=== PATIENT | female | born 1950 | race Caucasian/White ===

== ENCOUNTER → 2017-02-23 | Outpatient (CLI) | payer OTHER | LOC: BMCIMAGING 13:23 | PROVIDERS: ATTEND Internal Medicine | DX: J40 Bronchitis, not specified as acute or chronic (principal) ==

== ENCOUNTER 2017-09-01 07:46 | Inpatient (IN) | payer OTHER ==
[2017-09-01] MEDS ORDERED: ONDANSETRON 4 MG/2 ML VIAL ONE (08:19)
[2017-09-01] MEDS ORDERED: ONDANSETRON 4 MG/2 ML VIAL IVP ONE (08:19)
[2017-09-01] MEDS ORDERED: HYDROmorphONE/DILAUDID 2 MG/ML INJ ONE (08:19)
[2017-09-01] MEDS ORDERED: HYDROmorphONE/DILAUDID 2 MG/ML INJ IVP ONE (08:19)
[2017-09-01] MEDS ORDERED: NS 1,000 ML IV ONE (08:19)
--- NOTE | 2017-09-01 08:22 | EDPHY ---
HPI/HX/ROS/PE/MDM Narrative: CHIEF COMPLAINT: Right lower abdominal pain HISTORY OF PRESENT ILLNESS: This patient is a 67 year old female complaining of right lower quadrant pain onset last night. Her discomfort is generally a dull ache, but she notes sharp pain with palpation. Certain positions make her pain increase. She cannot identify any palliating factors. She has never had similar pain in the past. The patient had a fever last night, now resolved. She felt nauseous the day before her discomfort began. She denies vomiting or diarrhea. No history of abdominal surgeries other than cesarian section. No history of kidney stones. Her last food intake was last night around 17:00. She has had sips of water since then. No chills, chest pain, shortness of breath, palpitations, vomiting, diarrhea, urinary complaints, headache, lightheadedness. REVIEW OF SYSTEMS: Aside from elements discussed in the HPI, a comprehensive 10-point review of systems was reviewed and is negative. PAST MEDICAL HISTORY: Cardiomegaly. History of breast cancer 12 years ago ( chemotherapy and bilateral mastectomy). Cesarian section. Chronic bronchitis ( inhaler as needed). SOCIAL HISTORY: . at bedside. PCP: Dr. Cisse. VITAL SIGNS: Reviewed by me GENERAL: Well-developed, well-nourished, resting comfortably in no respiratory distress. HEENT: Atraumatic. Eyes: No icterus, no injection. Mouth: dry lips, moist mucous membranes. No erythema or lesions. Neck: supple with no adenopathy. LUNGS: Clear to auscultation bilaterally, no wheezes, rhonchi or rales. CARDIAC: Regular rate and rhythm, no rubs, murmurs or gallops. ABDOMEN: McBurney's point tenderness, voluntary guarding, no rebound. Soft, nontender, nondistended, bowel sounds normal. BACK: No CVA tenderness. EXTREMITIES: No trauma. No edema. Range of motion is normal throughout. NEURO: Alert and oriented, grossly nonfocal. SKIN: Warm and dry, no rash. PSYCHIATRIC: Normal mentation, no agitation. Portions of this note were transcribed by a director medical writing. I personally performed a history, physical exam, medical decision making, and confirmed accuracy of information the transcribed note. ED Course: This 67 y/o female presents with LRQ abdominal pain onset last night. Exam reveals McBurney's point tenderness. Plan for CT abdomen/pelvis. Plan for labs including CBC, chemistries, liver, lipase, UA. Plan to administer 1mg IV Dilaudid, 4mg IV Zofran, and 1L IV NS for symptom relief. 10:[address] Hua, radiologist. CT abdomen/pelvis positive for ruptured appendix. Plan to consult with general surgery. Plan to administer 1gm IV Rocephin and 500mg IV Flagyl. 10:22 Spoke with PA for Dr. Key, general surgeon. Discussed options for surgery. Recognize the fact that the patient primary care physician is Dr. Sameera Cisse from [facility]; patient and family would prefer consultation with General surgery on-call. 11:[address] Key. She will evaluate the patient. She accepts admission for ruptured appendicitis. MDM: After obtaining the patient's history and performing an examination, differential diagnosis considered included but was not limited to appendicitis, cholecystitis, gastritis, pancreatitis, kidney stones, urinary tract infections and other causes. - Data Points Imaging Results: Imaging Impressions Abdomen CT 09/01/17 08:22 Impression: Ruptured appendicitis. Results called to Dr. Mena at 10:05 AM. General information for patients regarding this examination can be found at [email or web address]. If you have questions or comments about this report, please contact me at (hospital) or [phone] (cell). Imaging: Discussed imaging studies w/ call center director Radiologist Laboratory Results: Laboratory Results 09/01/17 08:45 09/01/17 08:45 09/01/17 09/01/17 09/01/17 09:25 08:45 08:45 WBC 8.52 10^3/uL 10^3/uL (3.80-9.50) RBC 4.20 10^6/uL 10^6/uL (4.18-5.33) Hgb 13.7 g/dL g/dL (12.6-16.3) Hct 40.2 % % (38.0-47.0) MCV 95.7 fL fL (81.5-99.8) MCH 32.6 pg pg (27.9-34.1) MCHC 34.1 g/dL g/dL (32.4-36.7) RDW 13.6 % % (11.5-15.2) Plt Count 141 10^3/uL L 10^3/uL (150-400) MPV 11.2 fL fL (8.7-11.7) Neut % (Auto) 81.1 % H % (39.3-74.2) Lymph % (Auto) 10.2 % L % (15.0-45.0) [place] % (Auto) 5.8 % % (4.5-13.0) Eos % (Auto) 2.1 % % (0.6-7.6) Baso % (Auto) 0.4 % % (0.3-1.7) Nucleat RBC Rel Count 0.0 % % (0.0-0.2) Absolute Neuts (auto) 6.92 10^3/uL H 10^3/uL (1.70-6.50) Absolute Lymphs (auto) 0.87 10^3/uL L 10^3/uL (1.00-3.00) Absolute Monos (auto) 0.49 10^3/uL 10^3/uL (0.30-0.80) Absolute Eos (auto) 0.18 10^3/uL 10^3/uL (0.03-0.40) Absolute Basos (auto) 0.03 10^3/uL 10^3/uL (0.02-0.10) Absolute Nucleated RBC 0.00 10^3/uL 10^3/uL (0-0.01) Immature Gran % 0.4 % % (0.0-1.1) Immature Gran # 0.03 10^3/uL 10^3/uL (0.00-0.10) Sodium 139 mEq/L mEq/L (135-145) Potassium 3.7 mEq/L mEq/L (3.5-5.2) Chloride 105 mEq/L mEq/L (97-110) Carbon Dioxide 26 mEq/l mEq/l (22-31) Anion Gap 8 mEq/L mEq/L (8-16) BUN 20 mg/dL mg/dL (7-23) Creatinine 1.1 mg/dL H mg/dL (0.6-1.0) Estimated GFR 49 Glucose 92 mg/dL mg/dL (70-100) Calcium 8.4 mg/dL L mg/dL (8.5-10.4) Total Bilirubin 1.3 mg/dL mg/dL (0.1-1.4) Conjugated Bilirubin 0.4 mg/dL mg/dL (0.0-0.5) Unconjugated Bilirubin 0.9 mg/dL mg/dL (0.0-1.1) AST 16 IU/L IU/L (14-46) ALT 29 IU/L IU/L (9-52) Alkaline Phosphatase 58 IU/L IU/L (38-126) Total Protein 5.3 g/dL L g/dL (6.3-8.2) Albumin 3.0 g/dL L g/dL (3.5-5.0) Lipase 27 IU/L IU/L (23-300) Urine Color YELLOW Urine Appearance HAZY Urine pH 5.0 (5.0-7.5) Ur Specific [place] 1.015 (1.002-1.030) Urine Protein NEGATIVE (NEGATIVE) Urine Ketones NEGATIVE (NEGATIVE) Urine Blood NEGATIVE (NEGATIVE) Urine Nitrate NEGATIVE (NEGATIVE) Urine Bilirubin NEGATIVE (NEGATIVE) Urine Urobilinogen NEGATIVE EU EU (0.2-1.0) Ur Leukocyte Esterase NEGATIVE (NEGATIVE) Urine RBC 3-5 /hpf H /hpf (0-3) Urine WBC 10-15 /hpf H /hpf (0-3) Ur Epithelial Cells Not Reported Hyaline Casts >182 /lpf H /lpf (0-1) Granular Casts 1-5 /lpf /lpf (0-1) Urine Mucus TRACE /lpf /lpf (NONE-1+) Urine Glucose NEGATIVE (NEGATIVE) Medications Given: Discontinued Medications Hydromorphone HCl (Dilaudid) 1 mg IVP EDNOW ONE Stop: 09/01/17 08:20 Last Admin: 09/01/17 08:25 Dose: 1 mg Sodium Chloride (Ns) 1,000 mls @ 0 mls/hr IV EDNOW ONE; Wide Open PRN Reason: Protocol Stop: 09/01/17 08:20 Last Admin: 09/01/17 08:25 Dose: 1,000 mls Ceftriaxone Sodium/Dextrose (Rocephin 1 Gm (Premix)) 50 mls @ 100 mls/hr IV EDNOW ONE PRN Reason: Protocol Stop: 09/01/17 10:46 Last Admin: 09/01/17 10:28 Dose: 50 mls Metronidazole/Sodium Chloride (Flagyl 500 Mg (Premix)) 100 mls @ 100 mls/hr IV EDNOW ONE PRN Reason: Protocol Stop: 09/01/17 11:17 Last Admin: 09/01/17 10:56 Dose: 100 mls Ondansetron HCl (Zofran) 4 mg IVP EDNOW ONE Stop: 09/01/17 08:20 Last Admin: 09/01/17 08:25 Dose: 4 mg General Time Seen by Provider: 09/01/17 08:09 Initial Vital Signs: Initial Vital Signs Temperature (C) 36.4 C 09/01/17 07:49 Heart Rate 82 09/01/17 07:49 Respiratory Rate 18 09/01/17 07:49 Blood Pressure 139/77 H 09/01/17 07:49 O2 Sat (%) 96 09/01/17 07:49 O2 Delivery Mode Room Air O2 (L/minute) 2 Allergies/Adverse Reactions: morphine Allergy (Verified 09/01/17 11:06) Vomiting Sulfa (Sulfonamide Antibiotics) Allergy (Verified 09/01/17 07:48) Rash Home Medications: Medication Instructions Recorded Multivitamins [Multivitamin (*)] 1 each PO DAILY 09/16/15 Venlafaxine HCl 50 mg PO DAILY 09/16/15 Albuterol [Proventil Inhaler HFA 1 - 2 puffs IH Q4H PRN 09/01/17 (*)] Calcium Carb W/Vit D [Calcium Carb 500 mg PO DAILY 09/01/17 W/Vit D 500/200 (*)] Carvedilol [Coreg (*)] 6.25 mg PO DAILY 09/01/17 Carvedilol [Coreg (*)] 12.5 mg PO DAILY18 09/01/17 Fluticasone Hfa 220 Mcg [Flovent 1 puffs IH BID PRN 09/01/17 220 MCG Hfa MDI (*)] Herbals/Supplements -Info Only 1 each PO DAILY 09/01/17 Ibuprofen [Motrin (*)] 200 - 400 mg PO DAILY PRN 09/01/17 Lisinopril [Zestril 5 mg (*)] 5 mg PO HS 09/01/17 Magnesium Oxide [Magnesium Oxide 400 mg PO DAILY 09/01/17 400 mg (*)] [place]-3 Fatty Acids [Fish Oil 1000 1,000 mg PO DAILY 09/01/17 mg (*)] Departure - Departure Disposition: [facility] Inpatient Acute Clinical Impression: Ruptured appendix Acute appendicitis Qualifiers: Acute appendicitis type: other Qualified Code(s): K35.89 - Other acute appendicitis Abdominal pain Qualifiers: Abdominal location: right lower quadrant Qualified Code(s): R10.31 - Right lower quadrant pain Condition: Fair Report Scribed for: Lani Mena Report Scribed by: Alberta Newton Date of Report: 09/01/17 Time of Report: 11:36
[2017-09-01] MEDS ORDERED: IOPAMIDOL (ISOVUE-300) 100 ML BTL ONE (08:48)
[2017-09-01 08:51] LABS: PLATELET COUNT 141 10^3/uL (150-400)
[2017-09-01] MEDS ORDERED: LR 1,000 ML IV ONE (12:55)
--- NOTE | 2017-09-01 13:01 | GHP ---
[f rep st] HISTORY AND PHYSICAL DATE OF ADMISSION: 09/01/2017 CHIEF COMPLAINT: Right lower quadrant pain. HISTORY OF PRESENT ILLNESS: The patient is a 67-year-old woman who presented to the emergency room this morning complaining of right lower quadrant pain. This developed last night and started as a dull pain in the right lower quadrant , which escalated. She reports having nausea for 2 days prior to today with no vomiting. She reports having subjective fever overnight, but did not take her temperature. She denies any constipation or diarrhea. No dysuria, hematuria, or other urinary issues. She last ate a piece of pizza last night at 5 p.m. She had a sip of water at 7 a.m. PAST MEDICAL HISTORY: History of breast cancer bilateral, chronic bronchitis. PAST SURGICAL HISTORY: section, bilateral mastectomy with reconstruction. FAMILY HISTORY: No heart disease or diabetes. ALLERGIES: Sulfa, morphine. SOCIAL HISTORY: She is . 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 She currently works with [employer]. She lives in [place]. She is a former smoker and quit 1980. She drinks "too much alcohol" and reports drinking a few glasses of wine per night. She denies recreational drug use. REVIEW OF SYSTEMS: 10-point review of systems negative aside from HPI. PHYSICAL EXAMINATION: GENERAL: Well-developed, well-nourished woman in no acute distress. HEENT: Normocephalic, atraumatic. No hearing deficits. Pupils equal and round. No scleral icterus. Mucous membranes moist. NECK: Trachea midline. RESPIRATORY: Clear to auscultation bilaterally. No increased work of breathing. CARDIOVASCULAR: Regular rate and rhythm. No peripheral edema. ABDOMEN: Hypoactive bowel sounds throughout. Soft, softly distended, tender to deep palpation right lower quadrant. PSYCH: Mood and affect normal. NEURO: Grossly intact. SKIN: Warm and dry. No rashes or lesions. LABORATORY DATA: Results reviewed. White blood cell count within normal limits. Her chem panel is normal other than creatinine 1.1, calcium 8.4. Low protein and albumin. CAT scan showed ruptured appendicitis. IMPRESSION/PLAN: A 67-year-old woman with ruptured appendicitis. She will go to the operating room for laparoscopic, possible open appendectomy. She will likely need to stay inpatient and receive intravenous antibiotics. We discussed risks of surgery, including, but not limited to, heart attack, stroke , blood clots, or . We discussed risks of infection, bleeding, damage to surrounding structures, need for additional procedures, and delayed abscess. She understands the risks and would like to proceed. She will remain nothing by mouth. She received intravenous antibiotics in the emergency room. Consent was signed and in her chart. Patient was additionally seen by Dr. Eliane Key, who agrees with the above impression and plan. I personally saw, interviewed and examined the patient. Her CT scan showed appendicitis with fluid in the abdomen without distinct abscess. I will take her to the operating room for a laparoscopic appendectomy with wash out. /[id number]/MODL MTDD
[2017-09-01] MEDS ORDERED: BUPIVACAINE 0.5% 30 ML SDV ONE (13:25)
--- NOTE | 2017-09-01 13:31 | PDANEPAE ---
ANE History of Present Illness acute appendicitis, here for lap joanna AURELIANO Past Medical History - Cardiovascular History Hx Hypertension: Yes Hx Coronary Artery / Peripheral Vascular Disease: Yes - Pulmonary History Hx Oxygen in Use at Home: No Hx Sleep Apnea: No - Endocrine History Hx Diabetes: No ANE Review of Systems Review of Systems: - Exercise capacity Exercise capacity: >=4 METS ANE Patient History - Allergies Allergies/Adverse Reactions: morphine Allergy (Verified 09/01/17 11:06) Vomiting Sulfa (Sulfonamide Antibiotics) Allergy (Verified 09/01/17 07:48) Rash - Home Medications Home Medications: Multivitamins [Multivitamin (*)] 1 each PO DAILY 09/16/15 [Last Taken 08/30/17] Venlafaxine HCl 50 mg PO DAILY 09/16/15 [Last Taken 08/30/17] Albuterol [Proventil Inhaler HFA (*)] 1 - 2 puffs IH Q4H PRN 09/01/17 [Last Taken Unknown] Calcium Carb W/Vit D [Calcium Carb W/Vit D 500/200 (*)] 500 mg PO DAILY [Last Taken 08/30/17] Carvedilol [Coreg (*)] 6.25 mg PO DAILY 09/01/17 [Last Taken 08/31/17] Carvedilol [Coreg (*)] 12.5 mg PO DAILY18 09/01/17 [Last Taken 08/31/17] Fluticasone Hfa 220 Mcg [Flovent 220 MCG Hfa MDI (*)] 1 puffs IH BID PRN [Last Taken Unknown] Herbals/Supplements -Info Only 1 each PO DAILY 09/01/17 [Last Taken Unknown] Ibuprofen [Motrin (*)] 200 - 400 mg PO DAILY PRN 09/01/17 [Last Taken 08/31/17 21:00 400MG] Lisinopril [Zestril 5 mg (*)] 5 mg PO HS 09/01/17 [Last Taken 08/31/17] Magnesium Oxide [Magnesium Oxide 400 mg (*)] 400 mg PO DAILY 09/01/17 [Last Taken 08/30/17] [place]-3 Fatty Acids [Fish Oil 1000 mg (*)] 1,000 mg PO DAILY 09/01/17 [Last Taken 08/30/17] - NPO status NPO Since - Liquids (Date): 09/01/17 NPO Since - Liquids (Time): 07:00 NPO Since - Solids (Date): 08/31/17 NPO Since - Solids (Time): 17:00 - Anes Hx Anes Hx: no prior problems - Smoking Hx Smoking Status: Former smoker - Alcohol Use Alcohol Use: Occasionally - Family Anes Hx Family Anes Hx: none ANE Labs/Vital Signs - Labs Result Diagrams: 09/01/17 08:45 09/01/17 08:45 - Vital Signs Blood Pressure: 133/92 Heart Rate: 108 Respiratory Rate: 16 O2 Sat (%): 89 Height: 152.4 cm Weight: 52.163 kg ANE Physical Exam - Airway Neck exam: FROM Mallampati Score: Class 2 Mouth exam: normal dental/mouth exam - Pulmonary Pulmonary: no respiratory distress, clear to auscultation - Cardiovascular Cardiovascular: regular rate and rhythym, no murmur, rub, or gallop - ASA Status ASA Status: III ANE Anesthesia Plan Anesthesia Plan: general endotracheal anesthesia Regional Anesthesia: TAP block
[2017-09-01] MEDS ORDERED: MIDAZOLAM 2 MG/2 ML VIAL ONE (13:33)
[2017-09-01] MEDS ORDERED: MIDAZOLAM 2 MG/2 ML VIAL IVP ONE (13:33)
[2017-09-01] MEDS ORDERED: fentaNYL 100 MCG/2 ML INJ ONE ×2 (13:40→14:45)
[2017-09-01] MEDS ORDERED: PROPOFOL 200 MG/20 ML VIAL ONE (13:40)
[2017-09-01] MEDS ORDERED: ROCURONIUM 50 MG/5 ML VIAL ONE (13:42)
[2017-09-01] MEDS ORDERED: LIDOCAINE 2% 100 MG/5 ML SYR ONE (13:42)
[2017-09-01] MEDS ORDERED: ALBUTEROL 60 PUFFS/8 GM MDI IH PRN (14:49)
[2017-09-01] MEDS ORDERED: FLUTICASONE HFA 220 MCG MDI IH PRN (14:50)
--- NOTE | 2017-09-01 14:53 | POSTOPPROG ---
Post Op Note Date of Operation: 09/01/17 Surgeon: Eliane Key Anesthesiologist: roseanna Anesthesia: GET(General Endotracheal) Pre-op Diagnosis: perf appy Post-op Diagnosis: same Indication: 67 yo with perf appy Procedure: lap appy with wash out Findings: purulent fluid but no obvious abscess Inf/Abcess present in the surg proc area at time of surgery?: No Depth: Superfical (Skin SQ) EBL: Minimal Specimen(s): appendix and peritoneal fluid
[2017-09-01] MEDS ORDERED: HYDROCODONE/APAP 5/325 TAB PO PRN (14:57)
[2017-09-01] MEDS ORDERED: HYDROmorphONE/DILAUDID 2 MG/ML INJ IVP PRN (14:57)
[2017-09-01] MEDS ORDERED: fentaNYL 100 MCG/2 ML INJ IVP PRN (14:57)
[2017-09-01] MEDS ORDERED: ACETAMINOPHEN 500 MG TAB PO PRN (14:57)
[2017-09-01] MEDS ORDERED: NALOXONE HCL 0.4 MG/ML INJ IVP PRN (14:57)
[2017-09-01] MEDS ORDERED: PROMETHAZINE HCL 25 MG/ML INJ IVP PRN (14:57)
[2017-09-01] MEDS ORDERED: oxyCODONE IR 5 MG TAB PO PRN ×2 (14:57→21:31)
[2017-09-01] MEDS ORDERED: ONDANSETRON 4 MG/2 ML VIAL IVP PRN (14:57)
--- NOTE | 2017-09-01 14:57 | POSTANESTH ---
Post Anesthetic Evaluation Cardiovascular Status: Normal, Stable, Similar to Pre-Op Cond Respiratory Status: Normal, Stable, Similar to Pre-op Cond. Level of Consciousness/Mental Status: Can Participate in Eval, Alert and Oriented Pain Control: Adequate, Prn Tx Ordered Nausea/Vomiting Control: Adequate, Prn Tx Ordered Complications Possibly Related to Anesthesia: None Noted
[2017-09-01] MEDS ORDERED: D5W 1/2 NS W/ 20 KCl/L 1,000 ML IV SCH (15:00)
[2017-09-01] MEDS: CARVEDILOL 6.25 MG TAB PO SCH (17:21)
[2017-09-01] MEDS: LISINOPRIL 5 MG TAB PO SCH (20:37)
--- NOTE | 2017-09-01 22:44 | GOP ---
[f rep st] OPERATIVE REPORT DATE OF OPERATION: 09/01/2017 SURGEON: Eliane Key MD ANESTHESIA: General. ANESTHESIOLOGIST: Dr. Isidro. PREOPERATIVE DIAGNOSIS: Perforated appendix. POSTOPERATIVE DIAGNOSIS: Perforated appendix. PROCEDURE PERFORMED: Laparoscopic appendectomy with washout. FINDINGS: Purulent fluid, but no obvious abscess. Infection was present at the time of surgery in t he intraabdominal cavity. SPECIMENS: Appendix and peritoneal fluid. ESTIMATED BLOOD LOSS: Minimal. INDICATIONS: Geovanna Bowers is a 67-year-old woman who developed abdominal pain. She had a CT scan at showed enlarged appendix and fluid consistent with perforation. DESCRIPTION OF PROCEDURE: Patient was brought into the operating room, placed supine on the table, a nd general anesthesia was administered. Her abdomen was prepped and draped in the usual sterile fash ion. I infiltrated all sites with 0.5% Marcaine prior to making incisions. I elevated her umbilicus . I made a small incision. I inserted the Veress needle. Her abdomen insufflated easily to a press ure of 15 mmHg. I placed a 5 mm trocar with a camera at this site. Under direct vision, I placed an other 5 mm trocar at the pubic area and a 10 mm trocar in the left lower quadrant. There were no inj uries from Veress needle placement. I explored her abdomen. She did have some bowel that was inject ed near the site of the enlarged appendix. There was a scant amount of fluid above her liver and a s mall amount deep in her pelvis. There was no obvious abscess. I lifted her appendix cephalad and I w as able to dissect it away from the terminal ilium and the cecum. I divided the mesoappendix with e Harmonic Scalpel. I transected the base of the appendix with an Endo-DUSTIN 45 load. It was placed i n an EndoCatch bag and retrieved via the 10 mm trocar. I performed suction and irrigation until ther e was clear return of fluid. The ports were removed under direct vision. The abdomen allowed to roxanna ufflate. The fascia at the 10 mm trocar site was closed with 0 Vicryl. Skin closed with 4-0 Monocry l. Dermabond applied. She was awakened in the operating room, extubated, transferred to PACU in sta ble condition. /[id number]/MODL
[2017-09-02] MEDS: oxyCODONE IR 5 MG TAB PO PRN ×4 (03:36→20:04)
[2017-09-02] MEDS: CALCIUM CARB W/VIT D 500 MG TAB PO SCH (08:25)
[2017-09-02] MEDS: CARVEDILOL 6.25 MG TAB PO SCH ×2 (08:25→17:20)
[2017-09-02] MEDS: MAGNESIUM OXIDE 400 MG TAB PO SCH (08:26)
[2017-09-02 08:28] LABS: PLATELET COUNT 134 10^3/uL (150-400)
[2017-09-02] MEDS ORDERED: VENLAFAXINE HCL 50 MG PO SCH ×2 (09:00)
[2017-09-02] MEDS ORDERED: ONDANSETRON 4 MG/2 ML VIAL IVP PRN (10:27)
--- NOTE | 2017-09-02 11:18 | SOAPPROG ---
SOAP Progress Note Assessment/Plan: Assessment/Plan: 67yoF s/p lap appy for perforated appendicitis IV abx, will transition to PO prior to DC Pain controlled Passing flatus Clear liquid diet Dispo: continue inpt, likely 2-3 days until return of bowel function. Seen c Dr. Key S: nausea after eating last night O: laying in bed comfortable NAD Abd distended incisions CDI soft nontender +BS Objective: Vital Signs Temp Pulse Resp BP Pulse Ox 36.3 C 86 16 91/62 L 93 09/02/17 11:00 09/02/17 11:00 09/02/17 11:00 09/02/17 11:00 09/02/17 11:00 Microbiology 09/01/17 14:15 Gram Stain - Final Appendix - Other Laboratory Results 09/02/17 08:15 09/02/17 08:15 09/01/17 09/02/17 09/03/17 05:59 05:59 05:59 Intake Total 2470 900 Output Total 5 Balance 8481 900 ICD10 Worksheet Patient Problems: Problems Problem Status Onset Abdominal pain Acute Acute appendicitis Acute Ruptured appendix Acute Cellulitis Acute Cellulitis of arm, left Acute
--- NOTE | 2017-09-02 12:05 | ASMTCMCOM ---
CM Note CM Note Notes: Spoke w/RN, pt lives at home w/. Will dc home w/support of when medically stable. She will transition to po abx at dc. CM available for any changes. DC Plan: Independent Date Signed: 09/02/2017 12:04 PM Electronically Signed By:Comfort Ulloa RN
--- NOTE | 2017-09-02 15:47 | PDMN ---
Medical Necessity Medical necessity: Change to IP, as of 09/02/17, per PA; los >2 mn s/p lap appy for perforated appendicitis; admit for further monitoring-await return of bowel function, IV abx & IVFs; hx breast cancer, chronic bronchitis; per progress note & order 09/02/17
[2017-09-02] MEDS: LISINOPRIL 5 MG TAB PO SCH (20:04)
[2017-09-03] MEDS: oxyCODONE IR 5 MG TAB PO PRN ×4 (06:28→21:16)
[2017-09-03] MEDS: MAGNESIUM OXIDE 400 MG TAB PO SCH (08:52)
[2017-09-03] MEDS: CARVEDILOL 6.25 MG TAB PO SCH ×2 (08:52→17:45)
[2017-09-03] MEDS: CALCIUM CARB W/VIT D 500 MG TAB PO SCH (08:52)
[2017-09-03] MEDS: VENLAFAXINE HCL 25 MG TAB PO SCH (08:54)
[2017-09-03] MEDS: LISINOPRIL 5 MG TAB PO SCH (21:14)
--- NOTE | 2017-09-03 22:21 | SOAPPROG ---
SOAP Progress Note Assessment/Plan: Assessment: POD # 2 s/p lap appy with wash out for perforated appendix Passing flatus Will advance diet ABX total of 10 days (today is day 3) Advance diet slowly S: Feeling better, passing flatus O: MUCH SOFTER TODAY BS present INcisions cdi Plan: 09/03/17 22:18 Objective: Vital Signs Temp Pulse Resp BP Pulse Ox 36.4 C 102 H 16 115/77 90 L 09/03/17 22:07 09/03/17 22:07 09/03/17 22:07 09/03/17 22:07 09/03/17 22:07 Laboratory Results 09/02/17 08:15 09/02/17 08:15 09/02/17 09/03/17 09/04/17 05:59 05:59 05:59 Intake Total 300 1350 Balance 300 1350 ICD10 Worksheet Patient Problems: Problems Problem Status Onset Abdominal pain Acute Acute appendicitis Acute Ruptured appendix Acute Cellulitis Acute Cellulitis of arm, left Acute
[2017-09-04] MEDS: oxyCODONE IR 5 MG TAB PO PRN ×5 (03:55→20:56)
[2017-09-04 05:05] LABS: PLATELET COUNT 184 10^3/uL (150-400)
[2017-09-04] MEDS: MAGNESIUM OXIDE 400 MG TAB PO SCH (08:31)
[2017-09-04] MEDS: CALCIUM CARB W/VIT D 500 MG TAB PO SCH (08:32)
[2017-09-04] MEDS: VENLAFAXINE HCL 25 MG TAB PO SCH (08:33)
[2017-09-04] MEDS: CARVEDILOL 6.25 MG TAB PO SCH ×2 (08:34→18:13)
--- NOTE | 2017-09-04 12:08 | SOAPPROG ---
SOAP Progress Note Assessment/Plan: Assessment/Plan: 67yo F POD#3 s/p lap appy and washout for perforated appendicitis IV abx, will transition to PO prior to DC (day 09/01). Culture pending Pain controlled Passing flatus Tolerating regular diet - go slowly Dispo: home 1-2 days when pain controlled and return of bowel function S: feeling improved. Not very hungry but tolerating food without nausea/ vomiting. no fevers O: laying in bed comfortable NAD Abd much less distended, soft, nontender, +BS Ecchymosis around incisions, CDI Objective: Vital Signs Temp Pulse Resp BP Pulse Ox 36.4 C 90 16 148/96 H 92 09/04/17 07:50 09/04/17 08:34 09/04/17 07:50 09/04/17 08:34 09/04/17 07:50 Laboratory Results 09/04/17 04:25 09/02/17 08:15 09/03/17 09/04/17 09/05/17 05:59 05:59 05:59 Intake Total 1350 Balance 1350 ICD10 Worksheet Patient Problems: Problems Problem Status Onset Abdominal pain Acute Acute appendicitis Acute Ruptured appendix Acute Cellulitis Acute Cellulitis of arm, left Acute
[2017-09-04] MEDS: LISINOPRIL 5 MG TAB PO SCH (20:51)
[2017-09-05] MEDS: oxyCODONE IR 5 MG TAB PO PRN ×2 (03:03→07:35)
[2017-09-05 07:33] VITALS: BP 163/97
[2017-09-05] MEDS: CARVEDILOL 6.25 MG TAB PO SCH (07:38)
[2017-09-05] MEDS: CALCIUM CARB W/VIT D 500 MG TAB PO SCH (07:39)
[2017-09-05] MEDS: MAGNESIUM OXIDE 400 MG TAB PO SCH (07:39)
[2017-09-05] MEDS: VENLAFAXINE HCL 25 MG TAB PO SCH (07:39)
--- NOTE | 2017-09-05 08:31 | PDDCSUM ---
Discharge Summary Discharge Summary: DISCHARGE SUMMARY Date of Admission September 01 Date of Discharge September 05 DISCHARGE DIAGNOSES -acute perforated appendicitis HOSPITAL COURSE The patient was admitted from the ED and taken to the operating room where they underwent an uneventful laparoscopic appendectomy for perforated appendicitis. They were subsequently taken to the PACU and then the general medical floor. The hospital course was uneventful, because of the perforation her diet was advanced slowly and she was maintained on IV antibiotics, this was transitioned to oral antibiotics on discharge. She was subsequently discharged home in stable condition on the morning of the . DISCHARGE MEDICATIONS Augmentin for an additional 5 days, oxycodone as needed for breakthrough pain DISPOSITION Home FOLLOW UP Follow up with Dr. Key in the office in 10-14 days for a general post- operative visit
--- NOTE | 2017-09-05 10:24 | ASMTCMCOM ---
CM Note CM Note Notes: CM spoke w/RN, pt still independent. Will dc home w/support of . CM available for any changes. DC Plan: Independent Date Signed: 09/05/2017 10:24 AM Electronically Signed By:Comfort Ulloa RN
== END 2017-09-05 10:59 | disposition home or self-care (01) | DRG 340 ==
LOC: F3E 12:28 → OBSVTOIN 15:28 → F3E 15:57
PROVIDERS: ADMIT Surgery; ATTEND Surgery
PROC: 0DTJ4ZZ Resection of Appendix, Percutaneous Endoscopic Approach (ICD-10-PCS; principal; 2017-09-01 12:45)
DX: K35.3 Acute appendicitis with localized peritonitis (principal); Z85.3 Personal history of malignant neoplasm of breast; Z87.891 Personal history of nicotine dependence
CPT/HCPCS: 96374; G0378; J0696; J1170; J2001; J2250; J2405; J2704; J3010; Q9967